=== PATIENT | female | born 1990 | race Caucasian/White ===

== ENCOUNTER 2017-12-07 22:37 | Emergency (ER) | payer OTHER ==
[~2017-12-07] VITALS: Ht 162.6 cm; Wt 62.6 kg
[2017-12-07 22:44] VITALS: Ht 162.6 cm; Wt 62.6 kg
[2017-12-08 01:29] VITALS: BP 116/67
== END 2017-12-08 01:29 | disposition home or self-care (01) ==
LOC: ED 22:37
DX: F07.81 Postconcussional syndrome (principal)

== ENCOUNTER 2018-01-05 20:21 | Emergency (ER) | payer OTHER ==
[~2018-01-05] VITALS: Ht 162.6 cm; Wt 64.0 kg
[2018-01-05 20:48] VITALS: Ht 162.6 cm; Wt 64.0 kg
[2018-01-05 23:13] VITALS: BP 130/87
== END 2018-01-05 23:13 | disposition home or self-care (01) ==
LOC: ED 20:21
DX: B07.9 Viral wart, unspecified (principal)

== ENCOUNTER 2018-07-06 09:50 | Inpatient (IN) | payer MEDICAID ==
[~2018-07-06] VITALS: Ht 162.6 cm; Wt 61.0 kg
[2018-07-06 09:57] VITALS: Ht 162.6 cm; Wt 61.0 kg
[2018-07-06 10:46] LABS: BASOPHIL % 0.9 % (0-2); PLATELET COUNT 294 x10^3mcL (130-400); RED CELL DISTRIBUTION WIDTH 13.3 % (11.5-14.5)
[2018-07-06 11:15] LABS: CALCIUM 9.6 mg/dL (8.5-10.1); CARBON DIOXIDE 22.5 mmol/L (21-32); CHLORIDE SERUM 98 mmol/L (98-107); CREATININE SERUM 0.7 mg/dL (0.6-1.0); GFR1 > 60 mL/min; GLUCOSE SERUM 76 mg/dL (74-106); POTASSIUM SERUM 3.6 mmol/L (3.5-5.1); SODIUM SERUM 135 mmol/L (136-145)
[2018-07-06 11:27] LABS: ALBUMIN 4.8 g/dL (3.4-5.0); ALKALINE PHOSPHATASE 64 U/L (46-116); ALT/SGPT 36 U/L (14-59); AST/SGOT 33 U/L (15-37); BILIRUBIN TOTAL 0.58 mg/dL (0.20-1.00); TOTAL PROTEIN, SERUM 9.2 g/dL (6.4-8.2)
[2018-07-06 13:57] LABS: T3 TOTAL 1.17 ng/mL
[2018-07-06 14:02] LABS: MAGNESIUM 2.4 mg/dL (1.8-2.4); PHOSPHOROUS 3.3 mg/dL (2.5-4.9)
[2018-07-06 15:08] VITALS: BP 120/73
[2018-07-06 15:50] LABS: FREE T4 1.24 ng/dL (0.76-1.46); FREE THYROXINE INDEX 4.1 ug/dL (1.4-4.5); T4(THYROXINE) 12.2 ug/dL (4.7-13.3)
[2018-07-06 17:30] LABS: UA SPECIFIC GRAVITY <=1.005 (1.005-1.035); microscopic required? YES; urine erythrocyte NEGATIVE (NEGATIVE)
[2018-07-06 17:39] LABS: AMPHETAMINE QUAL UR POSITIVE (See below)
[2018-07-06 21:13] VITALS: BP 100/49
[2018-07-07 05:54] VITALS: BP 93/55
[2018-07-07 07:01] LABS: BASOPHIL % 0.4 % (0-2); PLATELET COUNT 232 x10^3mcL (130-400); RED CELL DISTRIBUTION WIDTH 13.5 % (11.5-14.5)
[2018-07-07 07:13] LABS: CALCIUM 8.4 mg/dL (8.5-10.1); CARBON DIOXIDE 25.8 mmol/L (21-32); CHLORIDE SERUM 108 mmol/L (98-107); CREATININE SERUM 0.6 mg/dL (0.6-1.0); GFR1 > 60 mL/min; GLUCOSE SERUM 86 mg/dL (74-106); SODIUM SERUM 140 mmol/L (136-145)
[2018-07-07 08:34] VITALS: BP 105/51
[2018-07-07 16:38] VITALS: BP 106/71
[2018-07-07 21:12] VITALS: BP 93/59
[2018-07-08 05:40] VITALS: BP 93/55
[2018-07-08 07:30] LABS: CALCIUM 8.6 mg/dL (8.5-10.1); CARBON DIOXIDE 26.9 mmol/L (21-32); CHLORIDE SERUM 109 mmol/L (98-107); CREATININE SERUM 0.6 mg/dL (0.6-1.0); GFR1 > 60 mL/min; GLUCOSE SERUM 98 mg/dL (74-106); POTASSIUM SERUM 3.6 mmol/L (3.5-5.1); SODIUM SERUM 143 mmol/L (136-145)
[2018-07-08 08:31] LABS: BASOPHIL % 0.6 % (0-2); PLATELET COUNT 228 x10^3mcL (130-400); RED CELL DISTRIBUTION WIDTH 13.5 % (11.5-14.5)
[2018-07-08 08:32] VITALS: BP 99/53
[2018-07-08 12:24] VITALS: BP 115/78
[2018-07-08] MEDS ORDERED: ABILIFY5 M1 PO (12:24)
[2018-07-08] MEDS ORDERED: TRAZODONE100 MG PO (12:25)
[2018-07-08] MEDS ORDERED: REM15 PO (12:25)
[2018-07-08] MEDS ORDERED: RIS1 PO (12:25)
[2018-07-08 12:26] VITALS: BP 96/52
[2018-07-08 12:48] VITALS: BP 96/52
== END 2018-07-08 13:45 | disposition home or self-care (01) | DRG 816 ==
LOC: ED 09:50 → DU 12:57
PROVIDERS: Specialist; ADMIT Internal Medicine
DX: T40.5X1A Poisoning by cocaine, accidental (unintentional), initial encounter (principal); G92 Toxic encephalopathy; F11.151 Opioid abuse with opioid-induced psychotic disorder with hallucinations; E87.1 Hypo-osmolality and hyponatremia; F14.10 Cocaine abuse, uncomplicated; F15.10 Other stimulant abuse, uncomplicated; R44.0 Auditory hallucinations; Y92.89 Other specified places as the place of occurrence of the external cause; Z68.23 Body mass index [BMI] 23.0-23.9, adult
CPT/HCPCS: 84439; G0480; J2060; J7030

== ENCOUNTER 2018-08-03 23:27 | Emergency (ER) | payer MEDICAID ==
[~2018-08-03] VITALS: Ht 165.1 cm; Wt 54.4 kg
[~2018-08-03 23:27] MED LIST: ABILIFY5 M1 PO; REM15 PO; RIS1 PO; TRAZODONE100 MG PO
[2018-08-03 23:51] VITALS: Ht 165.1 cm; Wt 54.4 kg
[2018-08-04 00:06] LABS: BASOPHIL % 1.2 % (0-2); PLATELET COUNT 237 x10^3mcL (130-400); RED CELL DISTRIBUTION WIDTH 13.7 % (11.5-14.5)
[2018-08-04 00:32] LABS: CALCIUM 8.9 mg/dL (8.5-10.1); CARBON DIOXIDE 29.6 mmol/L (21-32); CHLORIDE SERUM 99 mmol/L (98-107); CREATININE SERUM 0.8 mg/dL (0.6-1.0); GFR1 > 60 mL/min; GLUCOSE SERUM 107 mg/dL (74-106); POTASSIUM SERUM 3.5 mmol/L (3.5-5.1); SODIUM SERUM 138 mmol/L (136-145)
[2018-08-04 00:36] LABS: ALBUMIN 4.4 g/dL (3.4-5.0); ALKALINE PHOSPHATASE 62 U/L (46-116); ALT/SGPT 21 U/L (14-59); AST/SGOT 20 U/L (15-37); BILIRUBIN TOTAL 0.6 mg/dL (0.20-1.00); TOTAL PROTEIN, SERUM 7.9 g/dL (6.4-8.2)
[2018-08-04 01:21] LABS: AMPHETAMINE QUAL UR POSITIVE (See below)
[2018-08-04 07:55] VITALS: BP 99/64
== END 2018-08-04 08:46 | disposition home or self-care (01) ==
LOC: ED 23:27
PROVIDERS: Emergency Medicine
DX: F15.10 Other stimulant abuse, uncomplicated (principal); F20.9 Schizophrenia, unspecified
CPT/HCPCS: 36415; G0480

== ENCOUNTER 2020-03-16 13:11 | Emergency (ER) | payer MEDICAID ==
[~2020-03-16] VITALS: Ht 165.1 cm; Wt 74.8 kg
[2020-03-16 13:20] VITALS: Ht 165.1 cm; Wt 74.8 kg
[2020-03-16 14:37] VITALS: BP 129/87
== END 2020-03-16 14:37 | disposition home or self-care (01) ==
LOC: ED 13:11
DX: L03.113 Cellulitis of right upper limb (principal)